=== PATIENT | female | born 1955 | race Caucasian/White ===

== ENCOUNTER 2021-08-20 04:26 | Emergency (ER) | payer MEDICARE, OTHER ==
[~2021-08-20] VITALS: Ht 167.6 cm; Wt 102.3 kg
[2021-08-20] MEDS ORDERED: ADENOSINE 6MG/2ML INJECTION (J0153) As Ordered ONE (04:44)
[2021-08-20] MEDS ORDERED: ADENOSINE 6MG/2ML INJECTION (J0153) IV STA (04:45)
[2021-08-20] MEDS ORDERED: METOPROLOL TART 50 MG TAB PO ONE (04:55)
[2021-08-20 05:05] VITALS: BP 150/68
[2021-08-20 05:50] LABS: BASO % 0.2 % (0.0-1.0); EOS # 0.2 10^3/uL (0.0-0.5); EOS % 1.6 % (0.0-3.0); HEMATOCRIT 43.4 % (36.0-47.0); LYMPH # 2.6 10^3/uL (1.5-5.0); LYMPH % 28.4 % (24.0-44.0); MEAN CORPUSCULAR HEMOGLOBIN 28.1 pg (27.0-33.0); MEAN CORPUSCULAR HGB CONC 32.3 g/dl (32.0-36.5); MONO # 0.7 10^3/uL (0.0-0.8); NEUTROPHILS # 5.6 10^3/uL (1.5-8.5); NEUTROPHILS % 61.4 % (36.0-66.0); PLATELET COUNT, AUTOMATED 221 10^3/uL (150-450); RED BLOOD COUNT 4.99 10^6/uL (4.00-5.40); WHITE BLOOD COUNT 9.2 10^3/uL (4.0-10.0)
[2021-08-20 06:07] LABS: BLOOD UREA NITROGEN 17 MG/DL (7-18); CALCIUM LEVEL 9.1 MG/DL (8.8-10.2); CARBON DIOXIDE LEVEL 29 MEQ/L (21-32); CHLORIDE LEVEL 106 MEQ/L (98-107); CK-MB VALUE MASS 1.2 NG/ML (<3.6); CPK CREATINE PHOSPHOKINASE 68 U/L (26-192); CREATININE FOR GFR 0.68 MG/DL (0.55-1.30); GLOMERULAR FILTRATION RATE > 60.0 (>45); GLUCOSE, FASTING 138 MG/DL (70-100); MB/CK RELATIVE INDEX 1.76 (< OR =4); NT-PRO BNP 69 PG/ML (<125); POTASSIUM SERUM 3.7 MEQ/L (3.5-5.1); SODIUM LEVEL 141 MEQ/L (136-145); TROPONIN I < 0.02 NG/ML (< 0.10)
--- NOTE | 2021-08-20 07:39 | REPVR ---
PROCEDURE INFORMATION: Exam: XR Chest Exam date and time: 08/20/2021 5:13 AM Age: 65 years old Clinical indication: Other: Chest pain TECHNIQUE: Imaging protocol: XR of the chest. Views: 1 view. COMPARISON: No relevant prior studies available. FINDINGS: Tubes, catheters and devices: Overlying EKG leads. Lungs: Lungs are well aerated. No consolidation. Pleural spaces: No significant pleural effusions. No pneumothorax. Heart/Mediastinum: Unremarkable. No cardiomegaly. Bones/joints: No acute bony abnormalities. Degenerative changes. IMPRESSION: No acute abnormalities are identified. Electronically signed by: Jacob Puente On 08/20/2021 07:39:26 AM
--- OUTSIDE RECORDS SUMMARY | 2021-08-20 07:39 | CCD ---
Author Author [facility] Address Unknown Phone Unavailable Support Name Relationship Address Phone RE Next Of Kin Unknown Unavailable HUA CHEN Next Of Kin [address] [place] [address] Re-disclosure Warning The records that you are about to access may contain information from federally-assisted alcohol or drug abuse programs. If such information is present, then the following federally mandated warning applies: This information has been disclosed to you from records protected by federal confidentiality rules (42 CFR part 2). The federal rules prohibit you from making any further disclosure of this information unless further disclosure is expressly permitted by the written consent of the person to whom it pertains or as otherwise permitted by 42 CFR part 2. A general authorization for the release of medical or other information is NOT sufficient for this purpose. The Federal rules restrict any use of the information to criminally investigate or prosecute any alcohol or drug abuse patient.The records that you are about to access may contain highly sensitive health information, the redisclosure of which is protected by Article 27-F of the [facility] Public Health law. If you continue you may have access to information: Regarding HIV / AIDS; Provided by facilities licensed or operated by the [facility] Office of Mental Health; or Provided by the [facility] Office for People With Developmental Disabilities. If such information is present, then the following [facility] mandated warning applies: This information has been disclosed to you from confidential records which are protected by state law. State law prohibits you from making any further disclosure of this information without the specific written consent of the person to whom it pertains, or as otherwise permitted by law. Any unauthorized further disclosure in violation of state law may result in a fine or intermediate sentence or both. A general authorization for the release of medical or other information is NOT sufficient authorization for further disc losure. Medications No Information Insurance Providers Payer name Policy type / Coverage type Policy ID Covered green party ID Covered green party's relationship to herrera Policy Herrera Plan Information [employer] [id number] SP [id number] MEDICARE [id number] Problems, Conditions, and Diagnoses No Information Surgeries/Procedures No Information Results No Information Social History No Information
[2021-08-20 08:38] VITALS: BP 137/60
--- NOTE | 2021-08-20 20:19 | ECGEPIP ---
[facility] - ED Test Date: 2021-08-20 Pat Name: ZOE CHEN Department: Room: - Gender: Female Technology Architect: : 1955 Requested By: ALICIA Ramesh Order Number: [id number] Reading MD: Maribell Bran Measurements Intervals [place] Rate: 161 P: AK: QRS: 42 QRSD: 108 T: 15 QT: 274 QTc: 448 Interpretive Statements Supraventricular tachycardia Nonspecific ST abnormality no prior Electronically Signed on 08-20-2021 20:18:51 EDT by Maribell Bran
--- NOTE | 2021-08-20 20:19 | ECGEPIP ---
[facility] - ED Test Date: 2021-08-20 Pat Name: ZOE CHEN Department: Room: - Gender: Female Outreach Coordinator: : 1955 Requested By: ALICIA Ramesh Order Number: [id number] Reading MD: Maribell Bran Measurements Intervals [place] Rate: 71 P: 54 CT: 196 QRS: 33 QRSD: 84 T: 13 QT: 376 QTc: 408 Interpretive Statements Normal sinus rhythm rhythm change compared 08/20/21 Electronically Signed on 08-20-2021 20:19:10 EDT by Maribell Bran
== END 2021-08-20 08:49 | disposition home or self-care (01) ==
LOC: EDBD 04:26 → M ED 04:26
DX: I47.9 Paroxysmal tachycardia, unspecified (principal); E11.9 Type 2 diabetes mellitus without complications; I10 Essential (primary) hypertension; J45.909 Unspecified asthma, uncomplicated; Z88.0 Allergy status to penicillin; Z88.8 Allergy status to other drugs, medicaments and biological substances
CPT/HCPCS: 71045; 80048; 80162; 82550; 82553; 83880; 84484; 85025; 93005; 93041; 94760; 99285; J0153

== ENCOUNTER → 2022-10-04 | Outpatient (REF) | payer MEDICARE, OTHER ==
[2022-10-04 21:41] LABS: APPEARANCE, URINE MANUAL CLOUDY (CLEAR); BILIRUBIN, URINE MANUAL NEGATIVE (NEGATIVE); BLOOD URINE MANUAL POSITIVE (NEGATIVE); COLOR, URINE MANUAL YELLOW (YELLOW); GLUCOSE, URINE (UA) MANUAL NEGATIVE (NEGATIVE); KETONE, URINE MANUAL NEGATIVE (NEGATIVE); LEUKOCYTE ESTERASE, URINE MAN POSITIVE (NEGATIVE); NITRITE, URINE MANUAL POSITIVE (NEGATIVE); PROTEIN, URINE MANUAL 2+ mg/dL (NEGATIVE); UROBILINOGEN, URINE MANUAL NORMAL (NORMAL)
[2022-10-04 22:04] LABS: RBC, URINE 30-40 /hpf (0-3); WBC, URINE TNTC /hpf (0-3)
[2022-10-04 22:05] LABS: BACTERIA, URINE LARGE AMOUNT; SQUAMOUS EPITHELIAL CELL URINE SMALL AMOUNT /hpf (SMALL AMT)
== END ==
LOC: M LAB REF 21:12
PROVIDERS: ATTEND Physician Assistant Medical
DX: N39.0 Urinary tract infection, site not specified (principal)

== ENCOUNTER 2023-05-29 07:07 | Emergency (ER) | payer MEDICARE, OTHER ==
[~2023-05-29] VITALS: Ht 167.6 cm; Wt 96.2 kg
[2023-05-29] MEDS ORDERED: ATOR1TAB21 (07:34)
[2023-05-29] MEDS ORDERED: METO50TA7 (07:34)
[2023-05-29] MEDS ORDERED: DIGO0.123 (07:34)
[2023-05-29] MEDS ORDERED: ASPI-226 (07:34)
[2023-05-29] MEDS ORDERED: LOSA50TA28 (07:34)
[2023-05-29] MEDS ORDERED: LIDOCAINE 5% (LIDODERM) PATCH TD ONE (09:00)
[2023-05-29] MEDS ORDERED: methocarbamoL 750 MG TAB PO ONE (09:00)
[2023-05-29] MEDS ORDERED: KETOROLAC 60MG 2ML VIAL IM ONE (09:00)
[2023-05-29] MEDS ORDERED: PERCOCET 5MG/325MG TAB PO ONE (10:10)
[2023-05-29] MEDS ORDERED: TRAM50TA2 PO ×2 (12:24→13:15)
[2023-05-29] MEDS ORDERED: METH-1165 PO ×2 (12:24→13:15)
[2023-05-29] MEDS ORDERED: ASPE4PAD TOP (12:24)
[2023-05-29] MEDS ORDERED: NAPR-837 PO (12:24)
[2023-05-29] MEDS ORDERED: MEDR4PAK PO (13:15)
[2023-05-29 13:16] VITALS: BP 174/80; TEMP 97.9; O2SAT 97
[2023-05-30] MEDS ORDERED: HYDR-3713 PO ×2 (13:31→13:33)
== END 2023-05-29 14:04 | disposition home or self-care (01) ==
LOC: M ED 07:07
DX: M51.36 Other intervertebral disc degeneration, lumbar region (principal); I10 Essential (primary) hypertension; E78.5 Hyperlipidemia, unspecified; I48.91 Unspecified atrial fibrillation; Z88.0 Allergy status to penicillin; Z88.8 Allergy status to other drugs, medicaments and biological substances; Z79.82 Long term (current) use of aspirin; Z79.899 Other long term (current) drug therapy
CPT/HCPCS: 72110; 72131; 96372; 99284; J1885

== ENCOUNTER 2023-05-30 09:22 | Emergency (ER) | payer MEDICARE, OTHER ==
[~2023-05-30] VITALS: Ht 167.6 cm; Wt 95.4 kg
[~2023-05-30 09:22] MED LIST: ASPE4PAD TOP; ASPI-226; ATOR1TAB21; DIGO0.123; LOSA50TA28; MEDR4PAK PO; METH-1165 PO; METO50TA7; NAPR-837 PO; TRAM50TA2 PO
[2023-05-30] MEDS ORDERED: NORCO, ANEXSIA 5/325MG TABLET (HYDROcodone/ACETAMINOPHEN) PO ONE (12:40)
[2023-05-30] MEDS ORDERED: HYDR-3713 PO ×2 (13:31→13:33)
[2023-05-30 13:50] VITALS: BP 160/70; TEMP 97.2; O2SAT 96
== END 2023-05-30 13:55 | disposition home or self-care (01) ==
LOC: M ED 09:22
DX: M54.17 Radiculopathy, lumbosacral region (principal); M54.32 Sciatica, left side; I48.91 Unspecified atrial fibrillation; I10 Essential (primary) hypertension; E78.5 Hyperlipidemia, unspecified; Z88.0 Allergy status to penicillin; Z88.8 Allergy status to other drugs, medicaments and biological substances; Z79.899 Other long term (current) drug therapy; Z79.82 Long term (current) use of aspirin

== ENCOUNTER → 2024-07-28 | Outpatient (CLI) | payer MEDICARE, OTHER ==
[~2024-07-28] MED LIST changes: +HYDR-3713 PO
== END ==
LOC: M RAD 13:58
PROVIDERS: ATTEND Student in an Organized Health Care Education/Training Program
DX: R06.02 Shortness of breath (principal)

== ENCOUNTER → 2024-09-04 | Outpatient (CLI) | payer MEDICARE, OTHER | LOC: M RAD 15:03 | PROVIDERS: ATTEND Nurse Practitioner Family | DX: J18.9 Pneumonia, unspecified organism (principal) ==

== ENCOUNTER 2024-12-13 16:19 | Emergency (ER) | payer MEDICARE, OTHER ==
[~2024-12-13] VITALS: Ht 167.6 cm; Wt 95.5 kg
[2024-12-13 17:09] LABS: BASO % 0.1 % (0.0-1.0); EOS # 0.3 10^3/uL (0.0-0.5); EOS % 2.7 % (0.0-3.0); HEMATOCRIT 44.5 % (36.0-47.0); HEMOGLOBIN 14.8 g/dl (12.0-15.5); LYMPH # 1.4 10^3/uL (1.5-5.0); LYMPH % 12.5 % (24.0-44.0); MEAN CORPUSCULAR HEMOGLOBIN 28.8 pg (27.0-33.0); MEAN CORPUSCULAR HGB CONC 33.3 g/dl (32.0-36.5); MEAN CORPUSCULAR VOLUME 86.7 fl (80.0-96.0); MONO % 8.8 % (2.0-8.0); NEUTROPHILS # 8.5 10^3/uL (1.5-8.5); NEUTROPHILS % 75.6 % (36.0-66.0); PLATELET COUNT, AUTOMATED 231 10^3/uL (150-450); RED BLOOD COUNT 5.13 10^6/uL (4.00-5.40); WHITE BLOOD COUNT 11.3 10^3/uL (4.0-10.0)
[2024-12-13] MEDS: methylPREDNISolone 125MG 2ML VIAL IV ONE (17:11)
[2024-12-13] MEDS: IPRATROPIUM 0.5MG/ALBUTEROL 2.5MG INH SOL UD 3ML (DUONEB) NEB ONE (17:28)
[2024-12-13] MEDS: ALBUTEROL SULFATE 2.5MG/0.5ML INH NEB SOLN NEB ONE (17:28)
[2024-12-13 19:04] LABS: ALBUMIN 3.6 G/DL (3.2-5.2); ALKALINE PHOSPHATASE 105 U/L (35-104); ALT/SGPT 25 U/L (7.0-40); AST/SGOT 16 U/L (<34); BILIRUBIN,DIRECT 0.2 MG/DL (<0.4); BILIRUBIN,TOTAL 0.7 MG/DL (0.3-1.2); BLOOD UREA NITROGEN 18 MG/DL (9-23); CALCIUM LEVEL 9.6 MG/DL (8.3-10.6); CARBON DIOXIDE LEVEL 28 MMOL/L (20-31); CHLORIDE LEVEL 104 MMOL/L (98-107); CREATININE FOR GFR 0.61 MG/DL (0.55-1.30); GLOMERULAR FILTRATION RATE > 60.0 (>39); GLUCOSE, FASTING 136 MG/DL (74-106); POTASSIUM SERUM 4.1 MMOL/L (3.5-5.1); SODIUM LEVEL 141 MMOL/L (136-145); TOTAL PROTEIN 7.9 G/DL (5.7-8.2)
[2024-12-13 20:00] VITALS: O2SAT 88
[2024-12-13] MEDS ORDERED: PRED10TA2 PO (20:01)
[2024-12-13] MEDS ORDERED: VENTAER INH (20:01)
[2024-12-13] MEDS: ALBUTEROL 90 MCG/ACT 8GM HFA INHALER INH ONE (20:29)
[2024-12-13 20:33] VITALS: BP 172/73; TEMP 98.4; O2SAT 94
== END 2024-12-13 20:38 | disposition home or self-care (01) ==
LOC: M ED 16:19
DX: U07.1 COVID-19 (principal); J45.901 Unspecified asthma with (acute) exacerbation; E78.5 Hyperlipidemia, unspecified; I10 Essential (primary) hypertension; Z88.0 Allergy status to penicillin; Z88.8 Allergy status to other drugs, medicaments and biological substances; Z79.51 Long term (current) use of inhaled steroids; Z79.1 Long term (current) use of non-steroidal anti-inflammatories (NSAID); Z79.52 Long term (current) use of systemic steroids; Z79.899 Other long term (current) drug therapy
CPT/HCPCS: 36415; 71045; 80048; 80076; 80162; 85025; 87486; 87581; 87633; 87798; 93005; 93041; 94640; 94760; 96374; 99285; J2919

== ENCOUNTER 2025-01-31 08:24 | Emergency (ER) | payer MEDICARE, OTHER ==
[~2025-01-31] VITALS: Ht 167.6 cm; Wt 92.6 kg
[~2025-01-31 08:24] MED LIST changes: +PRED10TA2 PO; +VENTAER INH
[2025-01-31] MEDS: methylPREDNISolone 125MG 2ML VIAL IV ONE (09:45)
[2025-01-31] MEDS: IPRATROPIUM 0.5MG/ALBUTEROL 2.5MG INH SOL UD 3ML NEB PRN (09:54)
[2025-01-31] MEDS ORDERED: VENTAER INH (10:50)
[2025-01-31] MEDS ORDERED: PRED10TA2 PO (10:50)
[2025-01-31 11:01] VITALS: BP 166/71; TEMP 99
[2025-01-31 11:02] VITALS: O2SAT 95
[2025-01-31 11:07] VITALS: O2SAT 95
== END 2025-01-31 11:09 | disposition home or self-care (01) ==
LOC: M ED 08:24
DX: J45.901 Unspecified asthma with (acute) exacerbation (principal); B97.4 Respiratory syncytial virus as the cause of diseases classified elsewhere; I48.91 Unspecified atrial fibrillation; E11.9 Type 2 diabetes mellitus without complications; I10 Essential (primary) hypertension; E78.5 Hyperlipidemia, unspecified; Z88.0 Allergy status to penicillin; Z88.8 Allergy status to other drugs, medicaments and biological substances; Z79.1 Long term (current) use of non-steroidal anti-inflammatories (NSAID); Z79.51 Long term (current) use of inhaled steroids; Z79.52 Long term (current) use of systemic steroids; Z79.899 Other long term (current) drug therapy

== ENCOUNTER → 2025-02-26 | Outpatient (REF) | payer MEDICARE, OTHER ==
[2025-02-26 17:45] LABS: APPEARANCE, URINE CLOUDY (CLEAR); BACTERIA, URINE AUTO 2+ (NEGATIVE); BILIRUBIN, URINE AUTO NEGATIVE (NEGATIVE); BLOOD, URINE BLOOD 2+ (NEGATIVE); COLOR, URINE YELLOW (YELLOW); GLUCOSE, URINE (UA) AUTO NEGATIVE (NEGATIVE); KETONE, URINE AUTO NEGATIVE (NEGATIVE); LEUKOCYTE ESTERASE, URINE AUTO 3+ (NEGATIVE); MUCUS, URINE SMALL (NEGATIVE); NITRITE, URINE AUTO NEGATIVE (NEGATIVE); PROTEIN, URINE AUTO 2+ mg/dL (NEGATIVE); RBC, URINE AUTO 21 /HPF (0-3); SQUAMOUS EPITHELIAL CELL UR AU 3 /HPF (0-6); UROBILINOGEN, URINE AUTO 0.2 mg/dL (0.0-2.0); WBC, URINE AUTO 107 /HPF (0-3)
== END ==
LOC: M LAB REF 17:05
PROVIDERS: ATTEND Physician Assistant Medical
DX: N39.0 Urinary tract infection, site not specified (principal)